=== PATIENT | female | born 1970 | race American Indian/Alaskan Native ===

== ENCOUNTER 2021-10-18 12:32 | Outpatient (CLI) | payer OTHER ==
[2021-10-18 13:34] LABS: Calcium 9.3 mg/dL (8.4-10.2)
== END 2021-10-18 12:33 | disposition home or self-care (01) ==
LOC: LAB 12:32
PROVIDERS: ATTEND Internal Medicine
DX: Z02.71 Encounter for disability determination (principal); I10 Essential (primary) hypertension; E11.9 Type 2 diabetes mellitus without complications
CPT/HCPCS: 36415; 80048